=== PATIENT | male | born 1945 | race Caucasian/White ===

== ENCOUNTER → 2016-07-08 | Outpatient (CLI) | payer MEDICARE | LOC: CT 09:28 | DX: J20.9 Acute bronchitis, unspecified (principal); R91.8 Other nonspecific abnormal finding of lung field | CPT/HCPCS: 71250 ==

== ENCOUNTER → 2016-10-05 | Outpatient (CLI) | payer MEDICARE | LOC: KOH-I 08:00 | DX: E27.8 Other specified disorders of adrenal gland (principal); N20.0 Calculus of kidney | CPT/HCPCS: 74150 ==

== ENCOUNTER → 2020-08-19 | Outpatient (CLI) | payer MEDICARE, OTHER ==
[~2020-08-19] MED LIST: ALBUTEROL0.63 MG/3 INH; ASPIRIN EC81 MG PO; AZITHROMYCIN250 MG PO; BRILINTA 90 MG90 MG PO; COZAAR50 MG PO; CYMBALTA60 MG PO; ECOTRIN81 MG PO; ENTRESTO 97 MG1 EACH PO; GLUCOPHAGE1000 MG PO; JANUVIA100 MG PO; LANTUS100 UNIT/1 SQ; LASIX40 MG PO; LEVEMIR100 UNIT/1 SQ; LIPITOR TAB 2020 MG PO; LYRICA300 MG PO; METOPROLOL TART25 MG PO; NORVASC10 MG PO; OMNICEF 300 MG300 MG PO; PLAVIX75 MG PO; PLETAL 100 MG100 MG PO; PROTONIX40 MG PO; SINGULAIR10 MG PO; VENTOLIN HFA 66.7 GM INH; ZAROXOLYN/DIULO5 MG PO
== END ==
LOC: HEART 5 13:46
DX: M79.605 Pain in left leg (principal); M79.604 Pain in right leg

== ENCOUNTER → 2020-09-02 | Outpatient (CLI) | payer MEDICARE, OTHER | LOC: EXRD 11:15 | DX: R68.89 Other general symptoms and signs (principal); I70.219 Atherosclerosis of native arteries of extremities with intermittent claudication, unspecified extremity; R20.0 Anesthesia of skin; M79.604 Pain in right leg; M79.605 Pain in left leg | CPT/HCPCS: 93925 ==

== ENCOUNTER → 2020-10-04 | Outpatient (CLI) | payer MEDICARE, OTHER | LOC: CT 10:00 | DX: I70.213 Atherosclerosis of native arteries of extremities with intermittent claudication, bilateral legs (principal) | CPT/HCPCS: 36415; 82565; Q9967 ==

== ENCOUNTER → 2021-08-20 | Outpatient (CLI) | payer MEDICARE | LOC: KOH-I 10:38 | DX: E27.8 Other specified disorders of adrenal gland (principal); N28.1 Cyst of kidney, acquired | CPT/HCPCS: 76775 ==

== ENCOUNTER 2021-10-08 10:02 | Observation (INO) | payer MEDICARE ==
[~2021-10-08] VITALS: Ht 185.4 cm; Wt 102.1 kg
[~2021-10-08 10:02] MED LIST changes: +ENTRESTO 49 MG1 EACH PO; -ENTRESTO 97 MG1 EACH PO; +HUMALOG100 UNIT/1 SC; -LANTUS100 UNIT/1 SQ; -NORVASC10 MG PO; +NORVASC2.5 MG PO; +TIZANIDINE HCL4 MG PO
[2021-10-08 11:28] LABS: RED BLOOD COUNT 5.56 M/UL (4.20-5.50); WHITE BLOOD COUNT 10.4 K/UL (4.5-11.0)
[2021-10-08] MEDS ORDERED: CLOPIDOGREL75 MG PO (15:40)
[2021-10-08] MEDS ORDERED: FARXIGA10 MG PO (15:41)
[2021-10-08] MEDS ORDERED: PRAVASTATIN SOD20 MG PO (15:46)
[2021-10-08] MEDS ORDERED: PROAIR HFA8.5 GM INH (15:53)
[2021-10-09 03:02] LABS: HEMOGLOBIN 15.7 gm/dl (14.0-17.5); RED BLOOD COUNT 5.4 M/UL (4.20-5.50)
[2021-10-09 03:03] LABS: WHITE BLOOD COUNT 7.4 K/UL (4.5-11.0)
[2021-10-09 03:16] LABS: BUN/CREATININE RATIO 19 (0-10)
== END 2021-10-09 18:20 | disposition home or self-care (01) ==
LOC: ER1 10:02 → CDU 15:07 → M/S 18:18
PROVIDERS: Emergency Medicine; ADMIT Internal Medicine
DX: R07.89 Other chest pain (principal); I95.9 Hypotension, unspecified; R55 Syncope and collapse; I25.10 Atherosclerotic heart disease of native coronary artery without angina pectoris; I11.0 Hypertensive heart disease with heart failure; I50.22 Chronic systolic (congestive) heart failure; I25.5 Ischemic cardiomyopathy; E11.9 Type 2 diabetes mellitus without complications; E78.5 Hyperlipidemia, unspecified; I25.2 Old myocardial infarction; Z79.02 Long term (current) use of antithrombotics/antiplatelets; Z79.82 Long term (current) use of aspirin; Z79.4 Long term (current) use of insulin; Z79.899 Other long term (current) drug therapy
CPT/HCPCS: 71045; 80048; 80053; 81001; 82533; 82550; 82553; 82962; 83036; 83690; 83880; 84439; 84443; 84484; 85025; 86140; 93005; 93880; 99285; G0378; Q9967